=== PATIENT | female | born 1960 | race Caucasian/White ===

== ENCOUNTER 2016-09-25 02:02 | Emergency (ER) | payer BC ==
[2016-09-25] MEDS ORDERED: Metoclopramide HCl 10 MG/2 ML VIAL ONE (02:23)
[2016-09-25] MEDS ORDERED: Ketorolac Tromethamine 30 MG/ML VIAL ONE (02:23)
[2016-09-25 02:43] LABS: Blood, Urine Large (Negative); Clarity Slightly Cloudy (Clear); Glucose, Urine (Dipstick) Negative (Negative); Leukocyte Negative (Negative); Nitrite Negative (Negative); Protein, Urine (Dipstick) 100 mg/dL (Neg-Trace); Specific Gravity, Urine 1.015 (1.005-1.030)
[2016-09-25 02:52] LABS: Bilirubin Negative (Negative)
[2016-09-25 02:53] LABS: Bacteria/HPF 1+ HPF (None Seen); Squamous Epithelial 0-3 HPF (0-3); WBC/HPF 0-3 HPF (0-3); Yeast-All Forms 2+ HPF (None Seen)
[2016-09-25 03:01] LABS: ALT (SGPT) 47 U/L (8-55); AST (SGOT) 52 U/L (5-34); Albumin 3.4 g/dL (3.5-5.0); Alkaline Phosphatase 87 U/L (40-150); Anion Gap 15 mmol/L (10-20); BUN (Urea Nitrogen) 6 mg/dL (9.8-20.1); Bilirubin, Total 1.4 mg/dL (0.2-1.2); Calc. Creatinine Clearance 0 mL/min (70-130); Calcium 8.2 mg/dL (7.8-10.44); Carbon Dioxide 16 mmol/L (22-29); Chloride 105 mmol/L (98-107); Estimated GFR-MDRD 81; Globulin 3.1 g/dL (2.4-3.5); Glucose 138 mg/dL (70-105); Potassium 3.3 mmol/L (3.5-5.1); Protein, Total 6.5 g/dL (6.0-8.3); Sodium 133 mmol/L (136-145)
[2016-09-25 03:03] LABS: Band 10 % (5-11); Hemoglobin 13.6 g/dL (12.0-16.0); Large Platelets SLIGHT; Lymphocytes 6 % (21-51); MDiff Complete? YES; Mean Corpuscular HGB CONC 34.8 g/dL (32.0-36.0); Mean Corpuscular Volume 86.1 fl (81.0-99.0); Mean Platelet Volume 10.5 fL (7.4-10.4); Monocytes 5 % (0-10); Neutrophil 79 % (42-75); PLT Morphology Comment Appears Decreased; Platelet Count 110 thou/uL (130-400); RBC Morphology Normal; Red Blood Cell (RBC) Count 4.53 mill/uL (4.20-5.40); White Blood Cell (WBC) Count 10.3 thou/uL (4.8-10.8)
--- NOTE | 2016-09-25 07:58 | RAD ---
CHEST TWO VIEWS 09/25/2016 COMPARISON: A 12/02/2013 study done at [facility]. FINDINGS: The heart is normal in size, and the lungs are clear. There are no signs of pneumonia or pleural ef fusion. A small calcified granuloma is seen in the right mid lung zone, laterally. It was present before and has not changed. The trachea is midline. The bony structures show no acute change. IMPRESSION: No acute thoracic findings. POS: HOME
== END 2016-09-25 03:39 | disposition home or self-care (01) ==
LOC: BURERS 02:02
DX: A08.4 Viral intestinal infection, unspecified (principal); G44.89 Other headache syndrome; I10 Essential (primary) hypertension; G47.30 Sleep apnea, unspecified; F32.9 Major depressive disorder, single episode, unspecified; F41.9 Anxiety disorder, unspecified; Z87.891 Personal history of nicotine dependence
CPT/HCPCS: 36415; 51701; 71020; 80053; 81003; 81015; 83605; 85025; 87040; 87077; 87149; 87186; 94760; 96374; 96375; A4353; J1885; J2765